=== PATIENT | male | born 1940 | race Caucasian/White ===

== ENCOUNTER → 2018-03-22 | Outpatient (CLI) | payer MEDICARE ==
[~2018-03-22] MED LIST: DUTA0.5C14 PO; EXF5/160PT PO; FAMO20TA28 PO; HYDR-385 PO; LEVO-85 PO; PHEN200T32 PO; SIMV-49 PO; TAMS0.4C25 PO
--- NOTE | 2018-03-22 14:00 | EKG ---
FACILITY: [facility] PATIENT NAME: NETTIE BRIDGES : [id number] MR: [id number]: [id number] EXAM DATE: ORDERING PHYSICIAN: LETHA QUACH TECHNOLOGIST: LUIS Godinez Reason : PRE-OP Blood Pressure : / mmHG Vent. Rate : 054 BPM Atrial Rate : 054 BPM P-R Int : 186 ms QRS Dur : 088 ms QT Int : 424 ms P-R-T Axes : 037 -10 047 degrees QTc Int : 402 ms Sinus bradycardia Left axis Decreased R wave progression anteriorly Abnormal ECG When compared with ECG of 30-AUG-2014 07:28, No significant change was found Confirmed by CATALINA MCDANIEL ([id number] on 03/23/2018 6:35:27 AM Referred By: PHILOMENA Confirmed By:CATALINA MCDANIEL
== END ==
LOC: LAB 13:32
PROVIDERS: ATTEND Anesthesiology
DX: Z01.810 Encounter for preprocedural cardiovascular examination (principal); Z01.812 Encounter for preprocedural laboratory examination; M72.0 Palmar fascial fibromatosis [Dupuytren]; R00.1 Bradycardia, unspecified; R94.31 Abnormal electrocardiogram [ECG] [EKG]
CPT/HCPCS: 36415; 82040; 82247; 82310; 82374; 82435; 82565; 82947; 84075; 84132; 84155; 84295; 84450; 84460; 84520; 93005